=== PATIENT | female | born 1995 | race Caucasian/White ===

== ENCOUNTER 2022-05-06 01:45 | Emergency (ER) | payer OTHER, SELFPAY ==
[2022-05-06 01:47] VITALS: BP 152/75; PULSE 98; RESP 17; TEMP 37.1; O2SAT 98; BMI 340.4
--- NOTE | 2022-05-06 02:44 | EX.ED.DYSGE1 ---
HPI History of Present Illness Chief Complaint: Sore Throat Informant: patient Narrative Narrative: Patient presents with a sore throat. This started about 3 to 4 days ago. He got more sore yesterday. She is able to eat and drink. No fevers. No cough or nasal drainage. She has not been around anyone who is ill. No myalgias. Nothing really makes it better or worse. PFSH PFSH Home Medications NK 05/06/22 [History Last Taken Unknown] Allergy/AdvReac Type Severity Reaction Status Date / Time cefprozil Allergy Anaphylaxis Verified 05/06/22 01:52 Macrolide Antibiotics Allergy Anaphylaxis Verified 05/06/22 01:52 Penicillins [PCN] Allergy Anaphylaxis Verified 05/06/22 01:50 Social History Smoking Status: Never smoker ROS ROS ED Constitutional Constitutional ED: Denies chills, fever(s), subjective or sweats ENT ENT ED: Reports sore throat; Denies ear pain or rhinorrhea Cardiovascular Cardiovascular: Denies chest pain Respiratory/Chest Respiratory/Chest: Denies cough or dyspnea Gastrointestinal Gastrointestinal: Denies diarrhea, nausea or vomiting Musculoskeletal Musculoskeletal: Denies arthralgias Neurologic Neurologic: Denies headache(s) Allergic/Immunologic Allergic/Immunologic ED: Denies mouth swelling or tongue swelling EXAM Physical Exam Const Vital Signs: 05/06/22 01:47 05/06/22 01:54 Temperature 98.8 F Temperature Source Temporal Pulse Rate 98 Respiratory Rate 17 Respiratory Effort Normal Respiratory Pattern Normal Blood Pressure 152/75 H Blood Pressure Mean 100 Pulse Ox 98 Oxygen Delivery Method Room Air Positive well nourished and well developed General Appearance ED: well developed and NAD HEENT HEENT Narrative: No sinus tenderness. Throat is minimally red but no exudate or swelling. No sign of Ludewig's. No dental tenderness. Tongue is normal. Uvula is normal. Eyes PERRL and EOMs intact bilaterally Eyes Narrative: . Neck Neck Narrative: Bilateral shotty lymphadenopathy. No stridor. Voice is normal. Handling secretions normally. Resp normal respiratory effort and clear to auscultation bilaterally Auscultation: Negative for rales, rhonchi or wheezes Cardio regular rate and regular rhythm GI normal to inspection, nondistended, normoactive bowel sounds and non-tender Back/Spine no CVA tenderness Neuro Sensorium / Orientation: alert Skin no rashes or lesions noted MDM MDM MDM Narrative Medical decision making narrative: Patient's rapid strep is negative. Clinically, her chance of strep is low also. I will give a dose of Decadron to help with her symptoms. We discussed returning if she has trouble swallowing, swelling, worsening pain, fevers, cough or other concerns. Discharge Plan Triage Chief Complaint: Sore Throat ED Provider: Delio Santiago Dx/Rx/DC Orders Clinical Impression: Sore throat Instructions: ED Pharyngitis, Viral Prescriptions: No Action NK Primary Care Provider: REGGIE RENDON Referrals: REGGIE RENDON [Other] - 3-5 Days if not improving Disposition Disposition: Home, Self Care
[2022-05-06 02:48] VITALS: BP 137/71; PULSE 74; RESP 16; O2SAT 98
[2022-05-06] MEDS: dexAMETHasone 4 MG Tablet 6 MG PO (02:54)
== END 2022-05-06 02:55 | disposition home or self-care (01) ==
PROVIDERS: Emergency Provider Emergency Medicine; Visit Provider Emergency Medicine
DX: J02.9 Acute pharyngitis, unspecified (principal)
CPT/HCPCS: 87880; 99283